=== PATIENT | female | born 1995 | race Caucasian/White ===

== ENCOUNTER 2022-09-27 21:37 | Inpatient (IN) | payer MEDICAID ==
[~2022-09-27] VITALS: Ht 157.5 cm; Wt 87.8 kg
[2022-09-27 23:05] LABS: BASOPHILS % 0.1 % (0.0-2.0); EOSINOPHILS % 0.7 % (0.0-5.0); HEMATOCRIT. 25.9 % (36.0-48.0); HEMOGLOBIN. 8.3 g/dL (12.0-16.0); LYMPHOCYTES % 8.5 % (20.0-50.0); MEAN CORPUSCULAR HEMOGLOBIN 29.4 pg (28.0-32.0); MEAN CORPUSCULAR VOLUME 91.1 fL (81.0-99.0); MEAN PLATELET VOLUME 7.3 fl (7.4-10.4); MONOCYTES % 6.4 % (2.0-8.0); NEUTROPHILS % 84.3 % (40.0-76.0); PLATELET 461 x1000/uL (130-400); RED BLOOD CELL COUNT 2.84 mill/uL (4.2-5.4)
[2022-09-27 23:17] LABS: PROTHROMBIN TIME 10.9 sec (9.6-11.0)
[2022-09-28] VITALS (7 sets, daily range): BP systolic 56–111; BP diastolic 35–65
[2022-09-28] MEDS ORDERED: MORPHINE SULFATE 2 MG/ML CPJ (NOT FOR IM USE) IV ONE (03:45)
[2022-09-28 04:27] LABS: HCG SCREEN POSITIVE
[2022-09-28 04:31] LABS: CHLORIDE 107 mEq/L (98-107)
[2022-09-28] MEDS ORDERED: MORPHINE SULFATE 2 MG/ML CPJ (NOT FOR IM USE) IV NR (05:30)
[2022-09-28] MEDS ORDERED: IBUPROFEN 800MG TABLET PO PRN (09:45)
[2022-09-28] MEDS ORDERED: ONDANSETRON HCL 4MG/2ML INJ IV PRN ×3 (09:45→19:45)
[2022-09-28] MEDS ORDERED: CEFAZOLIN 1000MG PREMIX 50 ML IV SCH (10:00)
[2022-09-28] MEDS ORDERED: NALOXONE HCL 0.4MG/ML VIAL IV PRN (10:15)
[2022-09-28] MEDS: LACTATED RINGERS 1,000 ML IV SCH ×2 (10:39→21:34)
[2022-09-28 11:53] LABS: BASOPHILS % 0.5 % (0.0-2.0); EOSINOPHILS % 0.7 % (0.0-5.0); HEMATOCRIT. 25.4 % (36.0-48.0); HEMOGLOBIN. 8.7 g/dL (12.0-16.0); LYMPHOCYTES % 11.7 % (20.0-50.0); MEAN CORPUSCULAR HEMOGLOBIN 29.3 pg (28.0-32.0); MEAN CORPUSCULAR VOLUME 85.8 fL (81.0-99.0); MEAN PLATELET VOLUME 6.9 fl (7.4-10.4); NEUTROPHILS % 80.1 % (40.0-76.0); PLATELET 381 x1000/uL (130-400); RED BLOOD CELL COUNT 2.96 mill/uL (4.2-5.4); RED CELL DISTRIBUTION WIDTH 15.9 % (11.6-14.6)
[2022-09-28] MEDS ORDERED: LIDOCAINE HCL 1% 10 MG/ML 10ML VIAL ONE (16:56)
[2022-09-28] MEDS ORDERED: PROPOFOL 200MG/20ML VIAL IV ONE (16:57)
[2022-09-28] MEDS ORDERED: MIDAZOLAM HCL 2 MG/2 ML VIAL ONE (16:57)
[2022-09-28] MEDS ORDERED: FENTANYL CITRATE/PF 50MCG/ML 2ML VIAL ONE ×2 (16:57→17:49)
[2022-09-28] MEDS ORDERED: LABETALOL 5MG/ML SYR 20 MG/4 ML SYRINGE IV PRN (17:30)
[2022-09-28] MEDS ORDERED: MEPERIDINE HCL/PF 25MG/ML CPJ IV PRN (17:30)
[2022-09-28] MEDS ORDERED: PHENYLEPHRINE HCL 10 MG/ML 1ML (IV VIAL) IV ONE ×3 (17:30→19:40)
[2022-09-28] MEDS ORDERED: HYDROMORPHONE HCL/PF 2MG/ML CPJ IV PRN (17:30)
[2022-09-28] MEDS ORDERED: ALBUMIN HUMAN 12.5G/250ML (5%) IV ONE ×2 (17:35→22:11)
[2022-09-28] MEDS ORDERED: ROCURONIUM BROMIDE 10MG/ML VIAL 5ML IV ONE ×2 (17:37→17:48)
[2022-09-28] MEDS ORDERED: CALCIUM CHLORIDE 1GM/10ML SYR IV ONE (18:31)
[2022-09-28] MEDS ORDERED: CEFAZOLIN SODIUM 1000MG/VIAL ONE (18:57)
[2022-09-28 19:00] LABS: HEMATOCRIT 19.9 % (36.0-48.0)
[2022-09-28 19:11] LABS: BASOPHILS % 0.3 % (0.0-2.0); EOSINOPHILS % 0.5 % (0.0-5.0); LYMPHOCYTES % 17.4 % (20.0-50.0); MEAN CORPUSCULAR HEMOGLOBIN 26.5 pg (28.0-32.0); MEAN CORPUSCULAR VOLUME 83.3 fL (81.0-99.0); MEAN PLATELET VOLUME 6.5 fl (7.4-10.4); MONOCYTES % 6.4 % (2.0-8.0); NEUTROPHILS % 75.4 % (40.0-76.0); PLATELET 139 x1000/uL (130-400); RED BLOOD CELL COUNT 1.67 mill/uL (4.2-5.4); RED CELL DISTRIBUTION WIDTH 16.8 % (11.6-14.6)
[2022-09-28 19:17] LABS: HEMATOCRIT. 13.9 % (36.0-48.0); HEMOGLOBIN. 4.4 g/dL (12.0-16.0)
[2022-09-28 19:19] LABS: CHLORIDE 117 mEq/L (98-107)
[2022-09-28] MEDS ORDERED: FUROSEMIDE 40MG/4ML VIAL ONE (19:29)
[2022-09-28] MEDS ORDERED: ACETAMINOPHEN 650MG SUPP PR PRN (19:45)
[2022-09-28] MEDS ORDERED: DEXT 5%/0.45% NACL KCL 20MEQ/L 1,000 ML IV SCH (19:45)
[2022-09-28] MEDS ORDERED: NOREPINEPHRINE 8MG/250ML PMX 250 ML IV PRN (20:15)
[2022-09-28] MEDS ORDERED: PROPOFOL 10MG/ML 100ML 100 ML IV PRN (20:15)
[2022-09-28] MEDS ORDERED: NOREPINEPHRINE 8 MG in DEXTROSE 5% WATER 250 ML IV PRN (20:30)
[2022-09-28] MEDS: PHENYLEPHRINE 100 MG in DEXT 5% WATER 250 ML IV PRN (20:50)
[2022-09-28 20:54] LABS: HEMATOCRIT 36.3 % (36.0-48.0); HEMOGLOBIN 11.2 g/dL (12.0-16.0)
[2022-09-28] MEDS ORDERED: NOREPINEPHRINE 32 MG in DEXT 5% WATER 218 ML IV PRN (21:00)
[2022-09-28] MEDS ORDERED: FAMOTIDINE 20MG TABLET PO SCH (21:00)
[2022-09-28 21:08] LABS: CHLORIDE 115 mEq/L (98-107); FIBRINOGEN 134 mg/dL (200-400); INR 1.5; PARTIAL THROMBOPLASTIN TIME 53.3 sec (23.4-31.0); PROTHROMBIN TIME 16.1 sec (9.6-11.0)
[2022-09-28 21:27] LABS: D-DIMER > 35.20 mg/L FEU (<0.50)
[2022-09-28] MEDS: FAMOTIDINE 20MG/2ML VIAL IV SCH (21:34)
[2022-09-28] MEDS ORDERED: CEFAZOLIN SODIUM 1000MG/VIAL IV SCH (22:00)
[2022-09-28 22:32] LABS: BG BASE EXCESS -21.5 mmol/L (-2.0-2.0); BG CARBOXYHEMOGLOBIN 0.6 % (0.5-1.5); BG DEOXYHEMOGLOBIN 0.3 % (0.0-5.0); BG FRACTION INSPIRED OXYGEN 100; BG HCO3 ACT 7.4 mmol/L (22.0-26.0); BG METHEMOGLOBIN 0.3 % (0.0-1.5); BG OXYGEN SATURATION 99.7 % (92.0-98.5); BG OXYHEMOGLOBIN 98.8 % (94.0-97.0); BG PCO2 26.7 mmHg (35.0-45.0); BG PH 7.063 (7.350-7.450); BG PO2 448.8 mmHg (75.0-100.0); BG SAMPLE SITE RIGHT RADIAL; BG TOTAL HEMOGLOBIN 15.7 g/dL (12.0-18.0); BG VENT MODE VBG - N/A
[2022-09-28] MEDS ORDERED: SODIUM BICARBONATE 8.4% 1 MEQ/ML 50ML SYR IV NR (22:45)
[2022-09-28] MEDS ORDERED: CALCIUM CHLORIDE 1GM/10ML SYR IV NR (22:45)
[2022-09-28] MEDS ORDERED: DEXTROSE 50% WATER 50ML SYRINGE IV PRN (22:45)
[2022-09-28] MEDS ORDERED: VASOPRESSIN 20 UNIT in SODIUM CHLORIDE 0.9% 99 ML IV PRN (23:00)
[2022-09-28] MEDS ORDERED: INSULIN REGULAR (HUMULIN R) 300UNITS/3ML VIAL IV NR (23:00)
[2022-09-28] MEDS: BLOOD SUGAR DIAGNOSTIC STRIP TEST SCH (23:47)
[2022-09-28] MEDS: INSULIN LISPRO 100 UNITS/ML SUBCUT SCH (23:50)
[2022-09-29] VITALS (97 sets, daily range): BP systolic 60–139; BP diastolic 20–102
[2022-09-29 01:18] LABS: HEMATOCRIT. 47.8 % (36.0-48.0); HEMOGLOBIN. 14.8 g/dL (12.0-16.0); MEAN CORPUSCULAR HEMOGLOBIN 27.5 pg (28.0-32.0); MEAN PLATELET VOLUME 7.3 fl (7.4-10.4); PLATELET 150 x1000/uL (130-400); RED BLOOD CELL COUNT 5.37 mill/uL (4.2-5.4); RED CELL DISTRIBUTION WIDTH 18.7 % (11.6-14.6)
[2022-09-29 01:41] LABS: BG BASE EXCESS -22.7 mmol/L (-2.0-2.0); BG CARBOXYHEMOGLOBIN 0.4 % (0.5-1.5); BG DEOXYHEMOGLOBIN 1.3 % (0.0-5.0); BG FRACTION INSPIRED OXYGEN 50; BG HCO3 ACT 5.3 mmol/L (22.0-26.0); BG METHEMOGLOBIN 0.5 % (0.0-1.5); BG OXYGEN SATURATION 98.7 % (92.0-98.5); BG OXYHEMOGLOBIN 97.8 % (94.0-97.0); BG PCO2 18.3 mmHg (35.0-45.0); BG PH 7.081 (7.350-7.450); BG PO2 168.6 mmHg (75.0-100.0); BG SAMPLE SITE RIGHT RADIAL; BG VENT MODE VENT - AC
[2022-09-29] MEDS ORDERED: FLUMAZENIL 0.1 MG/ML 5ML VIAL IV NR (02:00)
[2022-09-29] MEDS ORDERED: SODIUM BICARBONATE 8.4% 1 MEQ/ML 50ML SYR IV NR (02:00)
[2022-09-29] MEDS: LACTATED RINGERS 1,000 ML IV SCH (02:00)
[2022-09-29] MEDS: PHENYLEPHRINE 100 MG in DEXT 5% WATER 250 ML IV PRN ×2 (02:25→10:17)
[2022-09-29 02:39] LABS: CHLORIDE 113 mEq/L (98-107)
[2022-09-29] MEDS ORDERED: SODIUM BICARBONATE 150 MEQ in DEXTROSE 5% WATER 1,000 ML IV SCH (03:00)
[2022-09-29] MEDS ORDERED: CEFAZOLIN 1000MG PREMIX 50 ML IV SCH (04:00)
[2022-09-29] MEDS ORDERED: VANCOMYCIN 1250MG in DEXTROSE 5% WATER 250ML IV NR (04:30)
[2022-09-29 04:40] LABS: BG BASE EXCESS -5.9 mmol/L (-2.0-2.0); BG CARBOXYHEMOGLOBIN 0.5 % (0.5-1.5); BG DEOXYHEMOGLOBIN 0.9 % (0.0-5.0); BG FRACTION INSPIRED OXYGEN 50; BG METHEMOGLOBIN 0.3 % (0.0-1.5); BG OXYGEN SATURATION 99.1 % (92.0-98.5); BG OXYHEMOGLOBIN 98.3 % (94.0-97.0); BG PCO2 23.3 mmHg (35.0-45.0); BG PH 7.455 (7.350-7.450); BG PO2 195.3 mmHg (75.0-100.0); BG SAMPLE SITE RIGHT RADIAL; BG TOTAL HEMOGLOBIN 13.9 g/dL (12.0-18.0); BG VENT MODE VENT - AC
[2022-09-29] MEDS ORDERED: PIPERACILLIN/TAZOBACTAM 3.375G in DEXT 5% WATER 50ML IV SCH (05:00)
[2022-09-29] MEDS: BLOOD SUGAR DIAGNOSTIC STRIP TEST SCH ×4 (05:40→23:38)
[2022-09-29] MEDS: PIPERACILLIN/TAZOBACTAM 3.375 G in DEXTROSE 5% WATER 50 ML IV SCH ×3 (05:43→21:12)
[2022-09-29] MEDS: INSULIN LISPRO 100 UNITS/ML SUBCUT SCH ×4 (05:44→23:41)
[2022-09-29] MEDS ORDERED: PIPERACILLIN/TAZ 3.375G PREMIX 50 ML IV ONE (06:00)
[2022-09-29 06:01] LABS: HEMATOCRIT. 42.2 % (36.0-48.0); HEMOGLOBIN. 13.4 g/dL (12.0-16.0); MEAN CORPUSCULAR HEMOGLOBIN 27.3 pg (28.0-32.0); MEAN CORPUSCULAR VOLUME 85.9 fL (81.0-99.0); MEAN PLATELET VOLUME 8.3 fl (7.4-10.4); PLATELET 162 x1000/uL (130-400); RED BLOOD CELL COUNT 4.91 mill/uL (4.2-5.4); RED CELL DISTRIBUTION WIDTH 18.5 % (11.6-14.6)
[2022-09-29 06:32] LABS: CHLORIDE 109 mEq/L (98-107)
[2022-09-29 08:24] LABS: PLATELET ESTIMATE NORMAL
[2022-09-29 08:33] LABS: PLATELET ESTIMATE NORMAL
[2022-09-29 08:45] LABS: BG CARBOXYHEMOGLOBIN 0.2 % (0.5-1.5); BG DEOXYHEMOGLOBIN 1.6 % (0.0-5.0); BG FRACTION INSPIRED OXYGEN 40; BG METHEMOGLOBIN 0.3 % (0.0-1.5); BG OXYGEN SATURATION 98.4 % (92.0-98.5); BG OXYHEMOGLOBIN 97.9 % (94.0-97.0); BG PCO2 26.2 mmHg (35.0-45.0); BG PH 7.561 (7.350-7.450); BG PO2 132.5 mmHg (75.0-100.0); BG SAMPLE SITE RIGHT RADIAL; BG TOTAL HEMOGLOBIN 13.4 g/dL (12.0-18.0); BG VENT MODE VENT - AC
[2022-09-29] MEDS: FAMOTIDINE 20MG/2ML VIAL IV SCH ×2 (09:00→21:12)
[2022-09-29] MEDS: MORPHINE SULFATE 2 MG/ML CPJ (NOT FOR IM USE) IV PRN ×3 (09:01→21:13)
[2022-09-29] MEDS: SODIUM CHLORIDE 0.9% 1,000 ML IV SCH ×2 (10:00→18:42)
[2022-09-29] MEDS ORDERED: LIDOCAINE HCL 1% 30ML VIAL (10MG/ML) ONE (11:05)
[2022-09-29 13:35] LABS: BG BASE EXCESS 1.1 mmol/L (-2.0-2.0); BG CARBOXYHEMOGLOBIN 0.4 % (0.5-1.5); BG DEOXYHEMOGLOBIN 3.6 % (0.0-5.0); BG FRACTION INSPIRED OXYGEN 40; BG HCO3 ACT 23.3 mmol/L (22.0-26.0); BG METHEMOGLOBIN 0.3 % (0.0-1.5); BG OXYGEN SATURATION 96.4 % (92.0-98.5); BG OXYHEMOGLOBIN 95.7 % (94.0-97.0); BG PCO2 30.1 mmHg (35.0-45.0); BG PH 7.507 (7.350-7.450); BG SAMPLE SITE LEFT RADIAL; BG TOTAL HEMOGLOBIN 13.3 g/dL (12.0-18.0); BG VENT MODE VENT - CPAP
[2022-09-29] MEDS ORDERED: SODIUM CHLORIDE 0.9% 1,000 ML IV ONE (14:30)
[2022-09-29] MEDS: VANCOMYCIN 750MG PREMIX 150 ML IV SCH (18:42)
[2022-09-30] VITALS (74 sets, daily range): BP systolic 84–173; BP diastolic 47–106
[2022-09-30 00:23] LABS: HEMATOCRIT. 26.3 % (36.0-48.0); HEMOGLOBIN. 8.7 g/dL (12.0-16.0); MEAN CORPUSCULAR HEMOGLOBIN 27.7 pg (28.0-32.0); MEAN CORPUSCULAR VOLUME 83.9 fL (81.0-99.0); MEAN PLATELET VOLUME 7.8 fl (7.4-10.4); PLATELET 249 x1000/uL (130-400); RED BLOOD CELL COUNT 3.13 mill/uL (4.2-5.4)
[2022-09-30 00:31] LABS: CHLORIDE 109 mEq/L (98-107)
[2022-09-30] MEDS: PHENYLEPHRINE 100 MG in DEXT 5% WATER 250 ML IV PRN (00:35)
[2022-09-30] MEDS: SODIUM CHLORIDE 0.9% 1,000 ML IV SCH ×2 (00:35→05:49)
[2022-09-30] MEDS: VANCOMYCIN 750MG PREMIX 150 ML IV SCH (05:01)
[2022-09-30 05:40] LABS: HEMATOCRIT. 24.6 % (36.0-48.0); HEMOGLOBIN. 8.2 g/dL (12.0-16.0); MEAN CORPUSCULAR HEMOGLOBIN 27.8 pg (28.0-32.0); MEAN CORPUSCULAR VOLUME 83.6 fL (81.0-99.0); MEAN PLATELET VOLUME 7.6 fl (7.4-10.4); PLATELET 243 x1000/uL (130-400); RED BLOOD CELL COUNT 2.94 mill/uL (4.2-5.4); RED CELL DISTRIBUTION WIDTH 18.4 % (11.6-14.6)
[2022-09-30] MEDS: BLOOD SUGAR DIAGNOSTIC STRIP TEST SCH ×3 (05:47→18:14)
[2022-09-30] MEDS: PIPERACILLIN/TAZOBACTAM 3.375 G in DEXTROSE 5% WATER 50 ML IV SCH ×3 (05:49→21:12)
[2022-09-30] MEDS: INSULIN LISPRO 100 UNITS/ML SUBCUT SCH ×3 (05:49→18:17)
[2022-09-30 06:06] LABS: CHLORIDE 110 mEq/L (98-107)
[2022-09-30 06:15] LABS: PHOSPHORUS 4.7 mg/dL (2.5-4.9)
[2022-09-30] MEDS: FERROUS SULFATE 325MG TABLET PO SCH ×3 (06:29→17:33)
[2022-09-30] MEDS: FAMOTIDINE 20MG/2ML VIAL IV SCH ×2 (09:11→21:12)
[2022-09-30 09:30] LABS: PLATELET ESTIMATE NORMAL
[2022-09-30 09:33] LABS: PLATELET ESTIMATE NORMAL
[2022-09-30] MEDS ORDERED: IOHEXOL-350 100 ML BOTTLE ONE (11:10)
[2022-09-30] MEDS: MORPHINE SULFATE 2 MG/ML CPJ (NOT FOR IM USE) IV PRN (11:18)
[2022-09-30] MEDS: SODIUM CHLORIDE 0.45% 1,000 ML IV SCH ×2 (12:00→20:08)
[2022-09-30 13:12] LABS: HEMATOCRIT. 21.4 % (36.0-48.0); MEAN CORPUSCULAR HEMOGLOBIN 28.1 pg (28.0-32.0); MEAN CORPUSCULAR VOLUME 85.3 fL (81.0-99.0); MEAN PLATELET VOLUME 7.6 fl (7.4-10.4); PLATELET 204 x1000/uL (130-400); RED BLOOD CELL COUNT 2.51 mill/uL (4.2-5.4); RED CELL DISTRIBUTION WIDTH 18.5 % (11.6-14.6)
[2022-09-30 13:17] LABS: CHLORIDE 112 mEq/L (98-107)
[2022-09-30 13:41] LABS: PLATELET ESTIMATE NORMAL
[2022-09-30] MEDS ORDERED: POTASSIUM CHLORIDE 20MEQ TABLET SR PO NR (14:45)
[2022-09-30] MEDS: SIMETHICONE 80MG TABLET CHEW PO PRN (19:37)
[2022-10-01] VITALS (24 sets, daily range): BP systolic 125–170; BP diastolic 80–104
[2022-10-01] MEDS ORDERED: VANCOMYCIN 1G PREMIX 200 ML IV SCH
[2022-10-01] MEDS: BLOOD SUGAR DIAGNOSTIC STRIP TEST SCH ×5 (00:30→23:19)
[2022-10-01 00:34] LABS: HEMATOCRIT. 29.5 % (36.0-48.0); HEMOGLOBIN. 10.1 g/dL (12.0-16.0); MEAN CORPUSCULAR HEMOGLOBIN 29.4 pg (28.0-32.0); MEAN CORPUSCULAR VOLUME 85.4 fL (81.0-99.0); MEAN PLATELET VOLUME 7.4 fl (7.4-10.4); PLATELET 184 x1000/uL (130-400); RED BLOOD CELL COUNT 3.45 mill/uL (4.2-5.4); RED CELL DISTRIBUTION WIDTH 17.1 % (11.6-14.6)
[2022-10-01 00:44] LABS: INR 1.2; PROTHROMBIN TIME 12.4 sec (9.6-11.0)
[2022-10-01 00:46] LABS: CHLORIDE 108 mEq/L (98-107)
[2022-10-01] MEDS: MORPHINE SULFATE 2 MG/ML CPJ (NOT FOR IM USE) IV PRN (04:34)
[2022-10-01 05:29] LABS: HEMATOCRIT. 29.8 % (36.0-48.0); HEMOGLOBIN. 10.2 g/dL (12.0-16.0); MEAN CORPUSCULAR HEMOGLOBIN 29.2 pg (28.0-32.0); MEAN CORPUSCULAR VOLUME 85.5 fL (81.0-99.0); MEAN PLATELET VOLUME 7.5 fl (7.4-10.4); PLATELET 184 x1000/uL (130-400); RED BLOOD CELL COUNT 3.48 mill/uL (4.2-5.4); RED CELL DISTRIBUTION WIDTH 16.7 % (11.6-14.6)
[2022-10-01] MEDS: SODIUM CHLORIDE 0.45% 1,000 ML IV SCH ×2 (05:29→18:06)
[2022-10-01] MEDS: INSULIN LISPRO 100 UNITS/ML SUBCUT SCH ×5 (05:30→23:31)
[2022-10-01] MEDS: PIPERACILLIN/TAZOBACTAM 3.375 G in DEXTROSE 5% WATER 50 ML IV SCH ×3 (05:31→21:45)
[2022-10-01] MEDS: FERROUS SULFATE 325MG TABLET PO SCH ×3 (06:30→17:00)
[2022-10-01 08:33] LABS: CHLORIDE 110 mEq/L (98-107)
[2022-10-01 08:40] LABS: PHOSPHORUS 3.1 mg/dL (2.5-4.9)
[2022-10-01] MEDS ORDERED: POTASSIUM CHLORIDE 20MEQ TABLET SR PO NR (09:45)
[2022-10-01] MEDS: FAMOTIDINE 20MG/2ML VIAL IV SCH (09:52)
[2022-10-01] MEDS: MULTIVITAMINS,THER W-MINERALS TABLET PO SCH (09:52)
[2022-10-01 12:40] LABS: HEMATOCRIT. 29.1 % (36.0-48.0); HEMOGLOBIN. 9.9 g/dL (12.0-16.0); MEAN CORPUSCULAR HEMOGLOBIN 29.2 pg (28.0-32.0); MEAN CORPUSCULAR VOLUME 85.7 fL (81.0-99.0); MEAN PLATELET VOLUME 7.4 fl (7.4-10.4); PLATELET 197 x1000/uL (130-400); RED CELL DISTRIBUTION WIDTH 16.5 % (11.6-14.6)
[2022-10-01 12:45] LABS: CHLORIDE 106 mEq/L (98-107)
[2022-10-01] MEDS: HYDROCODONE/ACETAMINOPHEN 5/325MG TABLET PO PRN ×2 (14:31→23:43)
[2022-10-01] MEDS: VANCOMYCIN 1G PREMIX 200 ML IV SCH (15:12)
[2022-10-01 15:16] LABS: PLATELET ESTIMATE NORMAL
[2022-10-01 17:38] LABS: PLATELET ESTIMATE NORMAL
[2022-10-01 17:41] LABS: PLATELET ESTIMATE NORMAL
[2022-10-01] MEDS: FAMOTIDINE 20MG TABLET PO SCH (21:47)
[2022-10-02] VITALS (47 sets, daily range): BP systolic 110–188; BP diastolic 60–115
[2022-10-02 00:04] LABS: HEMATOCRIT. 33.2 % (36.0-48.0); HEMOGLOBIN. 11.2 g/dL (12.0-16.0); MEAN CORPUSCULAR VOLUME 85.8 fL (81.0-99.0); MEAN PLATELET VOLUME 7.2 fl (7.4-10.4); PLATELET 239 x1000/uL (130-400); RED BLOOD CELL COUNT 3.87 mill/uL (4.2-5.4); RED CELL DISTRIBUTION WIDTH 16.6 % (11.6-14.6)
[2022-10-02 01:06] LABS: CHLORIDE 107 mEq/L (98-107)
[2022-10-02] MEDS: VANCOMYCIN 1G PREMIX 200 ML IV SCH ×2 (02:02→15:25)
[2022-10-02] MEDS: PIPERACILLIN/TAZOBACTAM 3.375 G in DEXTROSE 5% WATER 50 ML IV SCH ×3 (05:41→21:04)
[2022-10-02] MEDS: INSULIN LISPRO 100 UNITS/ML SUBCUT SCH ×4 (06:00→23:43)
[2022-10-02] MEDS: BLOOD SUGAR DIAGNOSTIC STRIP TEST SCH ×4 (06:00→23:46)
[2022-10-02] MEDS: FERROUS SULFATE 325MG TABLET PO SCH ×3 (06:09→16:45)
[2022-10-02 06:39] LABS: BASOPHILS % 0.2 % (0.0-2.0); EOSINOPHILS % 0.5 % (0.0-5.0); HEMATOCRIT. 28.3 % (36.0-48.0); HEMOGLOBIN. 9.7 g/dL (12.0-16.0); LYMPHOCYTES % 8.6 % (20.0-50.0); MEAN CORPUSCULAR HEMOGLOBIN 29.1 pg (28.0-32.0); MEAN CORPUSCULAR VOLUME 85.2 fL (81.0-99.0); MEAN PLATELET VOLUME 7.3 fl (7.4-10.4); MONOCYTES % 5.6 % (2.0-8.0); NEUTROPHILS % 85.1 % (40.0-76.0); PLATELET 240 x1000/uL (130-400); RED BLOOD CELL COUNT 3.32 mill/uL (4.2-5.4)
[2022-10-02 07:57] LABS: CHLORIDE 111 mEq/L (98-107); PHOSPHORUS 3.8 mg/dL (2.5-4.9)
[2022-10-02] MEDS: SODIUM CHLORIDE 0.45% 1,000 ML IV SCH ×2 (08:50→21:04)
[2022-10-02] MEDS: ACETAMINOPHEN 325MG TABLET PO PRN ×3 (08:51→22:56)
[2022-10-02] MEDS: SIMETHICONE 80MG TABLET CHEW PO PRN (08:51)
[2022-10-02] MEDS: DOCUSATE SODIUM 100MG CAPSULE PO SCH ×2 (08:51→16:45)
[2022-10-02] MEDS: FAMOTIDINE 20MG TABLET PO SCH ×2 (08:51→21:04)
[2022-10-02] MEDS: MULTIVITAMINS,THER W-MINERALS TABLET PO SCH (08:51)
[2022-10-02 11:51] LABS: BASOPHILS % 0.3 % (0.0-2.0); EOSINOPHILS % 0.8 % (0.0-5.0); HEMATOCRIT. 29.2 % (36.0-48.0); HEMOGLOBIN. 9.7 g/dL (12.0-16.0); LYMPHOCYTES % 9.8 % (20.0-50.0); MEAN CORPUSCULAR HEMOGLOBIN 28.5 pg (28.0-32.0); MEAN CORPUSCULAR VOLUME 85.9 fL (81.0-99.0); MEAN PLATELET VOLUME 7.6 fl (7.4-10.4); MONOCYTES % 5.2 % (2.0-8.0); NEUTROPHILS % 83.9 % (40.0-76.0); PLATELET 221 x1000/uL (130-400); RED CELL DISTRIBUTION WIDTH 16.4 % (11.6-14.6)
[2022-10-02 11:59] LABS: CHLORIDE 109 mEq/L (98-107)
[2022-10-02 13:24] LABS: ATYPICAL LYMPHOCYTES 1
[2022-10-02 13:25] LABS: PLATELET ESTIMATE NORMAL
[2022-10-02] MEDS ORDERED: POTASSIUM CHLORIDE 20MEQ TABLET SR PO NR (14:30)
[2022-10-02 20:30] LABS: BASOPHILS % 0.1 % (0.0-2.0); EOSINOPHILS % 0.9 % (0.0-5.0); HEMATOCRIT. 30.2 % (36.0-48.0); LYMPHOCYTES % 10.3 % (20.0-50.0); MEAN CORPUSCULAR HEMOGLOBIN 28.6 pg (28.0-32.0); MEAN CORPUSCULAR VOLUME 86.2 fL (81.0-99.0); MEAN PLATELET VOLUME 7.4 fl (7.4-10.4); MONOCYTES % 6.1 % (2.0-8.0); NEUTROPHILS % 82.6 % (40.0-76.0); PLATELET 323 x1000/uL (130-400); RED CELL DISTRIBUTION WIDTH 16.6 % (11.6-14.6)
[2022-10-02 21:11] LABS: CHLORIDE 107 mEq/L (98-107)
[2022-10-03] VITALS (25 sets, daily range): BP systolic 122–174; BP diastolic 85–101
[2022-10-03 01:52] LABS: CHLORIDE 109 mEq/L (98-107)
[2022-10-03] MEDS: VANCOMYCIN 1G PREMIX 200 ML IV SCH ×2 (03:32→14:15)
[2022-10-03] MEDS: BLOOD SUGAR DIAGNOSTIC STRIP TEST SCH ×3 (05:23→17:22)
[2022-10-03] MEDS: INSULIN LISPRO 100 UNITS/ML SUBCUT SCH ×3 (05:23→17:32)
[2022-10-03] MEDS: PIPERACILLIN/TAZOBACTAM 3.375 G in DEXTROSE 5% WATER 50 ML IV SCH ×3 (05:23→21:20)
[2022-10-03] MEDS: FERROUS SULFATE 325MG TABLET PO SCH ×3 (06:07→17:28)
[2022-10-03 06:15] LABS: HEMATOCRIT. 30.3 % (36.0-48.0); MEAN CORPUSCULAR HEMOGLOBIN 28.7 pg (28.0-32.0); MEAN CORPUSCULAR VOLUME 86.9 fL (81.0-99.0); MEAN PLATELET VOLUME 7.1 fl (7.4-10.4); PLATELET 385 x1000/uL (130-400); RED BLOOD CELL COUNT 3.49 mill/uL (4.2-5.4); RED CELL DISTRIBUTION WIDTH 16.6 % (11.6-14.6)
[2022-10-03 06:19] LABS: CHLORIDE 111 mEq/L (98-107)
[2022-10-03] MEDS: FAMOTIDINE 20MG TABLET PO SCH ×2 (08:22→21:19)
[2022-10-03] MEDS: MULTIVITAMINS,THER W-MINERALS TABLET PO SCH (08:22)
[2022-10-03] MEDS: DOCUSATE SODIUM 100MG CAPSULE PO SCH ×2 (08:22→17:00)
[2022-10-03] MEDS: ACETAMINOPHEN 325MG TABLET PO PRN ×2 (08:23→21:20)
[2022-10-03] MEDS: SODIUM CHLORIDE 0.45% 1,000 ML IV SCH (09:11)
[2022-10-03 09:18] LABS: PHOSPHORUS 3.7 mg/dL (2.5-4.9)
[2022-10-03 12:56] LABS: PLATELET ESTIMATE NORMAL
[2022-10-03 14:56] LABS: CHLORIDE 109 mEq/L (98-107)
[2022-10-03] MEDS: IBUPROFEN 800MG TABLET PO PRN (16:38)
[2022-10-03 20:35] LABS: CHLORIDE 107 mEq/L (98-107)
[2022-10-04] VITALS: BP 137/89
[2022-10-04 04:00] VITALS: BP 141/87
[2022-10-04] MEDS: INSULIN LISPRO 100 UNITS/ML SUBCUT SCH ×5 (06:00→21:04)
[2022-10-04] MEDS: ACETAMINOPHEN 325MG TABLET PO PRN ×2 (06:04→12:31)
[2022-10-04] MEDS: BLOOD SUGAR DIAGNOSTIC STRIP TEST SCH ×5 (06:05→20:00)
[2022-10-04] MEDS: VANCOMYCIN 1G PREMIX 200 ML IV SCH ×2 (06:06→16:23)
[2022-10-04 06:42] LABS: BASOPHILS % 0.2 % (0.0-2.0); EOSINOPHILS % 1.5 % (0.0-5.0); HEMATOCRIT. 29.6 % (36.0-48.0); HEMOGLOBIN. 9.9 g/dL (12.0-16.0); MEAN CORPUSCULAR VOLUME 86.4 fL (81.0-99.0); MONOCYTES % 6.8 % (2.0-8.0); NEUTROPHILS % 74.5 % (40.0-76.0); PLATELET 536 x1000/uL (130-400); RED BLOOD CELL COUNT 3.42 mill/uL (4.2-5.4); RED CELL DISTRIBUTION WIDTH 16.2 % (11.6-14.6)
[2022-10-04] MEDS: PIPERACILLIN/TAZOBACTAM 3.375 G in DEXTROSE 5% WATER 50 ML IV SCH ×2 (07:37→14:49)
[2022-10-04 08:00] VITALS: BP 144/92
[2022-10-04] MEDS: DOCUSATE SODIUM 100MG CAPSULE PO SCH ×2 (09:43→16:23)
[2022-10-04] MEDS: FERROUS SULFATE 325MG TABLET PO SCH ×3 (09:43→16:22)
[2022-10-04] MEDS: FAMOTIDINE 20MG TABLET PO SCH ×2 (09:43→20:56)
[2022-10-04] MEDS: MULTIVITAMINS,THER W-MINERALS TABLET PO SCH (09:43)
[2022-10-04 09:48] LABS: CHLORIDE 109 mEq/L (98-107)
[2022-10-04 10:01] LABS: PHOSPHORUS 4.2 mg/dL (2.5-4.9)
[2022-10-04] MEDS ORDERED: POTASSIUM CHLORIDE 20MEQ TABLET SR PO NR (10:15)
[2022-10-04] MEDS ORDERED: MAGNESIUM 2 G PREMIX 50 ML IV NR (11:30)
[2022-10-04 12:00] VITALS: BP 143/94
[2022-10-04] MEDS: AMLODIPINE 5MG TABLET PO SCH (12:19)
[2022-10-04 16:00] VITALS: BP 128/91
[2022-10-04 20:00] VITALS: BP 144/89
[2022-10-04] MEDS: SIMETHICONE 80MG TABLET CHEW PO PRN (20:56)
[2022-10-04] MEDS: IBUPROFEN 800MG TABLET PO PRN (21:09)
[2022-10-04] MEDS ORDERED: HEMORRHOIDAL SUPP PR ONE (21:30)
[2022-10-04] MEDS: HYDROCORTISONE ACETATE 25MG SUPP PR SCH (22:00)
[2022-10-05] VITALS: BP 155/72
[2022-10-05] MEDS: PIPERACILLIN/TAZOBACTAM 3.375 G in DEXTROSE 5% WATER 50 ML IV SCH (00:40)
[2022-10-05] MEDS: SIMETHICONE 80MG TABLET CHEW PO PRN ×2 (03:31→22:14)
[2022-10-05 03:47] VITALS: BP 136/96
[2022-10-05] MEDS: BLOOD SUGAR DIAGNOSTIC STRIP TEST SCH ×4 (05:19→22:15)
[2022-10-05] MEDS: IBUPROFEN 800MG TABLET PO PRN (05:50)
[2022-10-05] MEDS: FERROUS SULFATE 325MG TABLET PO SCH ×3 (05:50→18:25)
[2022-10-05] MEDS: INSULIN LISPRO 100 UNITS/ML SUBCUT SCH ×4 (05:52→20:19)
[2022-10-05 07:04] LABS: BASOPHILS % 0.4 % (0.0-2.0); EOSINOPHILS % 1.3 % (0.0-5.0); HEMATOCRIT. 27.9 % (36.0-48.0); HEMOGLOBIN. 9.5 g/dL (12.0-16.0); LYMPHOCYTES % 14.7 % (20.0-50.0); MEAN CORPUSCULAR VOLUME 87.8 fL (81.0-99.0); MEAN PLATELET VOLUME 7.1 fl (7.4-10.4); MONOCYTES % 7.1 % (2.0-8.0); NEUTROPHILS % 76.5 % (40.0-76.0); PLATELET 589 x1000/uL (130-400); RED BLOOD CELL COUNT 3.17 mill/uL (4.2-5.4); RED CELL DISTRIBUTION WIDTH 16.5 % (11.6-14.6)
[2022-10-05 08:00] VITALS: BP 150/88
[2022-10-05 08:44] LABS: CHLORIDE 110 mEq/L (98-107)
[2022-10-05] MEDS: FAMOTIDINE 20MG TABLET PO SCH ×2 (09:00→22:10)
[2022-10-05] MEDS: MULTIVITAMINS,THER W-MINERALS TABLET PO SCH (09:00)
[2022-10-05] MEDS: DOCUSATE SODIUM 100MG CAPSULE PO SCH ×2 (09:00→18:25)
[2022-10-05] MEDS: AMLODIPINE 5MG TABLET PO SCH (09:01)
[2022-10-05] MEDS: HYDROCORTISONE ACETATE 25MG SUPP PR SCH ×2 (09:01→22:10)
[2022-10-05 09:06] LABS: PHOSPHORUS 4.5 mg/dL (2.5-4.9)
[2022-10-05 12:00] VITALS: BP 131/90
[2022-10-05 16:00] VITALS: BP 135/96
[2022-10-05] MEDS: ACETAMINOPHEN 325MG TABLET PO PRN (18:26)
[2022-10-05 20:30] VITALS: BP 146/96
[2022-10-06] VITALS: BP 149/95
[2022-10-06 04:00] VITALS: BP 143/95
[2022-10-06] MEDS: BLOOD SUGAR DIAGNOSTIC STRIP TEST SCH ×3 (05:06→16:58)
[2022-10-06] MEDS: FERROUS SULFATE 325MG TABLET PO SCH ×3 (05:23→16:59)
[2022-10-06] MEDS: ACETAMINOPHEN 325MG TABLET PO PRN ×3 (05:23→20:44)
[2022-10-06] MEDS: INSULIN LISPRO 100 UNITS/ML SUBCUT SCH ×3 (05:30→17:04)
[2022-10-06 08:00] VITALS: BP 135/84
[2022-10-06] MEDS: DOCUSATE SODIUM 100MG CAPSULE PO SCH ×2 (08:10→16:59)
[2022-10-06] MEDS: FAMOTIDINE 20MG TABLET PO SCH ×2 (08:10→21:56)
[2022-10-06] MEDS: MULTIVITAMINS,THER W-MINERALS TABLET PO SCH (08:10)
[2022-10-06] MEDS: HYDROCORTISONE ACETATE 25MG SUPP PR SCH ×2 (08:11→21:56)
[2022-10-06] MEDS: AMLODIPINE 5MG TABLET PO SCH (08:11)
[2022-10-06 09:50] LABS: BASOPHILS % 0.8 % (0.0-2.0); EOSINOPHILS % 1.4 % (0.0-5.0); HEMATOCRIT. 28.8 % (36.0-48.0); HEMOGLOBIN. 9.7 g/dL (12.0-16.0); LYMPHOCYTES % 15.9 % (20.0-50.0); MEAN CORPUSCULAR VOLUME 86.1 fL (81.0-99.0); MEAN PLATELET VOLUME 6.7 fl (7.4-10.4); NEUTROPHILS % 73.9 % (40.0-76.0); PLATELET 810 x1000/uL (130-400); RED BLOOD CELL COUNT 3.34 mill/uL (4.2-5.4); RED CELL DISTRIBUTION WIDTH 16.4 % (11.6-14.6)
[2022-10-06 12:00] VITALS: BP 116/65
[2022-10-06 16:00] VITALS: BP 144/81
[2022-10-06 20:00] VITALS: BP 133/89
[2022-10-07] VITALS: BP 128/60
[2022-10-07] MEDS: BLOOD SUGAR DIAGNOSTIC STRIP TEST SCH ×4 (00:07→17:04)
[2022-10-07] MEDS: INSULIN LISPRO 100 UNITS/ML SUBCUT SCH ×4 (00:08→17:08)
[2022-10-07 04:00] VITALS: BP 143/83
[2022-10-07 08:00] VITALS: BP 141/88
[2022-10-07] MEDS: FAMOTIDINE 20MG TABLET PO SCH ×2 (08:51→21:25)
[2022-10-07] MEDS: DOCUSATE SODIUM 100MG CAPSULE PO SCH ×2 (08:51→17:14)
[2022-10-07] MEDS: AMLODIPINE 5MG TABLET PO SCH (08:51)
[2022-10-07] MEDS: HYDROCORTISONE ACETATE 25MG SUPP PR SCH ×2 (08:52→21:26)
[2022-10-07] MEDS: FERROUS SULFATE 325MG TABLET PO SCH ×3 (08:52→17:14)
[2022-10-07] MEDS: MULTIVITAMINS,THER W-MINERALS TABLET PO SCH (08:52)
[2022-10-07] MEDS: ACETAMINOPHEN 325MG TABLET PO PRN ×2 (08:55→21:26)
[2022-10-07 12:00] VITALS: BP 135/90
[2022-10-07 16:00] VITALS: BP 130/85
[2022-10-07 20:00] VITALS: BP 144/92
[2022-10-08] VITALS: BP 147/89
[2022-10-08] MEDS: INSULIN LISPRO 100 UNITS/ML SUBCUT SCH ×3 (06:00→12:00)
[2022-10-08] MEDS: BLOOD SUGAR DIAGNOSTIC STRIP TEST SCH ×3 (06:28→12:00)
[2022-10-08 08:00] VITALS: BP 142/94
[2022-10-08] MEDS: DOCUSATE SODIUM 100MG CAPSULE PO SCH (08:59)
[2022-10-08] MEDS: FERROUS SULFATE 325MG TABLET PO SCH ×2 (08:59→14:08)
[2022-10-08] MEDS: FAMOTIDINE 20MG TABLET PO SCH (08:59)
[2022-10-08] MEDS: HYDROCORTISONE ACETATE 25MG SUPP PR SCH (09:00)
[2022-10-08] MEDS: AMLODIPINE 5MG TABLET PO SCH (09:00)
[2022-10-08] MEDS: MULTIVITAMINS,THER W-MINERALS TABLET PO SCH (09:00)
[2022-10-08] MEDS: SIMETHICONE 80MG TABLET CHEW PO PRN (09:02)
== END 2022-10-08 17:15 | disposition home or self-care (01) | DRG 548 ==
LOC: ER 21:54 → MICUSO 09-28 00:41 → EDBEDREQTM 09-28 01:33 → EDBEDREQ 09-28 01:33 → 6EST 09-28 15:13 → MICUNO 09-28 21:10 → 7EST 10-03 20:35
PROVIDERS: ADMIT Obstetrics & Gynecology; ATTEND Obstetrics & Gynecology
PROC: 0UQC0ZZ Repair Cervix, Open Approach (ICD-10-PCS; principal; 2022-09-28)
PROC: 0UQ90ZZ Repair Uterus, Open Approach (ICD-10-PCS; 2022-09-28)
PROC: 10D17ZZ Extraction of Products of Conception, Retained, Via Natural or Artificial Opening (ICD-10-PCS; 2022-09-28)
PROC: 5A1935Z Respiratory Ventilation, Less than 24 Consecutive Hours (ICD-10-PCS; 2022-09-28)
PROC: 0BH17EZ Insertion of Endotracheal Airway into Trachea, Via Natural or Artificial Opening (ICD-10-PCS; 2022-09-28)
PROC: 30233N1 Transfusion of Nonautologous Red Blood Cells into Peripheral Vein, Percutaneous Approach (ICD-10-PCS; 2022-09-28)
PROC: 02HV33Z Insertion of Infusion Device into Superior Vena Cava, Percutaneous Approach (ICD-10-PCS; 2022-09-29)
PROC: B548ZZA Ultrasonography of Superior Vena Cava, Guidance (ICD-10-PCS; 2022-09-29)
DX: O86.04 Sepsis following an obstetrical procedure (principal); J96.00 Acute respiratory failure, unspecified whether with hypoxia or hypercapnia; N17.0 Acute kidney failure with tubular necrosis; R65.21 Severe sepsis with septic shock; O90.4 Postpartum acute kidney failure; A41.9 Sepsis, unspecified organism; E43 Unspecified severe protein-calorie malnutrition; D68.9 Coagulation defect, unspecified; E87.20 Acidosis, unspecified; O72.1 Other immediate postpartum hemorrhage; O99.63 Diseases of the digestive system complicating the puerperium; O71.3 Obstetric laceration of cervix; I72.8 Aneurysm of other specified arteries; O90.81 Anemia of the puerperium; O25.3 Malnutrition in the puerperium; O99.215 Obesity complicating the puerperium; O24.439 Gestational diabetes mellitus in the puerperium, unspecified control; J98.11 Atelectasis; K21.9 Gastro-esophageal reflux disease without esophagitis; O99.53 Diseases of the respiratory system complicating the puerperium; O90.89 Other complications of the puerperium, not elsewhere classified
CPT/HCPCS: 36415; 36573; 36600; 71045; 74174; 76700; 76705; 76830; 76856; 80048; 80053; 80202; 82375; 82805; 82962; 83036; 83605; 83735; 84100; 84145; 84478; 84703; 85014; 85018; 85025; 85049; 85379; 85384; 86850; 86900; 86920; 87070; 87075; 88305; 93005; 93970; 94002; 94003; 97116; 97162; 99291; A6261; C1725; C1758; C1769; J0690; J1815; J1940; J2250; J2270; J2310; J2370; J2405; J2543; J2704; J3010; J3370; J3475; J3490; J7030; J7050; J7060; J7070; J7120; P9016; P9041; Q9967